=== PATIENT | female | born 1955 | race Hispanic/Latino ===

== ENCOUNTER 2020-06-01 08:38 | Day surgery (SDC) | payer SELFPAY ==
[2020-06-01 08:35] LABS: Absolute Lymphocytes (CBC) 2.1 K/uL (0.7-4.9); Basophils % 0.6 % (0-1.3); Hematocrit 42.6 % (36.0-45.0); Lymphocytes % 35.7 % (15.3-44.8); RBC Red Blood Cell Count 4.81 M/uL (3.86-4.86)
[2020-06-01 08:49] LABS: Urine Appearance CLEAR; Urine Bilirubin NEGATIVE (NEG); Urine Blood TRACE (NEG); Urine Color YELLOW; Urine Glucose NEGATIVE (NEG); Urine Protein NEGATIVE (NEG); Urine Specific Gravity 1.025 (1.005-1.030); Urine Urobilinogen 0.2 mg/dL (0.2-1.0); Urine pH 5.5 (5.0-7.0)
[2020-06-01 08:50] LABS: Urine Microscopic Reflex ORDER UMIC
[2020-06-01] MEDS ORDERED: FENTANYL CITR 100 MCG/2 ML ONE (08:57)
[2020-06-01] MEDS ORDERED: dexAMETHasone 10 MG/ML VIAL ONE (08:57)
[2020-06-01] MEDS ORDERED: LIDOCAINE 2% MPF 5 ML VIAL ONE (08:57)
[2020-06-01] MEDS ORDERED: propofoL 200 MG/20 ML VIAL IV ONE (08:57)
[2020-06-01] MEDS ORDERED: MIDAZOLAM HCL 2 MG/2 ML INJ ONE (08:57)
[2020-06-01] MEDS ORDERED: KETOROLAC 30 MG/ML INJ ONE (08:58)
[2020-06-01] MEDS ORDERED: ONDANSETRON 4 MG/2 ML VIAL ONE (08:59)
[2020-06-01 09:00] LABS: Urine Bacteria 20-50 /HPF (<20); Urine Culture Reflex Order REFLEXED; Urine Mucus LIGHT /HPF (NONE SEEN); Urine RBC <5 /HPF (NONE SEEN)
[2020-06-01] MEDS ORDERED: CEFAZOLIN/SWI 1gm 1 GM/10 ML SYR ONE (09:03)
[2020-06-01] MEDS ORDERED: Ringers Lactate 1,000 ML IV ONE (09:03)
[2020-06-01] MEDS ORDERED: ROCURONIUM 50 MG/5 ML VIAL IV ONE (09:26)
--- NOTE | 2020-06-01 09:28 | RAD REPORT ---
EXAM DESCRIPTION: John Guillory (2 Views)06/01/2020 8:05 am CLINICAL HISTORY: Lymphoma. Preop for shoulder surgery COMPARISON: None FINDINGS: The lungs appear clear of acute infiltrate. The heart is normal size IMPRESSION: No acute abnormalities displayed
[2020-06-01] MEDS ORDERED: Mastisol Adhesive Liq ONE (10:20)
[2020-06-01] MEDS ORDERED: GLYCOPYRROLATE 0.2 MG/ML SYR ONE (10:31)
[2020-06-01] MEDS ORDERED: NEOSTIGMINE 1 MG/ML -5 ML ONE (10:31)
[2020-06-01] MEDS ORDERED: BUPIVACA 0.5%/EPI 0.0005%/PF 30 ML VIAL ONE (10:41)
[2020-06-01] MEDS: HYDROMORPHONE HCL 1 MG/ML INJ ONE ×4 (11:09→11:24)
[2020-06-01] MEDS ORDERED: SUCCINYLCHOLINE 20 MG/ML (10 ML) IV ONE (11:10)
[2020-06-01] MEDS: MEPERIDINE HCL 25 MG/ML SYR ONE ×2 (11:32→11:37)
[2020-06-01] MEDS ORDERED: MEPERIDINE HCL 25 MG/ML SYR ONE (11:53)
[2020-06-01 13:38] VITALS: O2SAT 95
[2020-06-01 13:41] VITALS: BP 126/61
[2020-06-01 13:43] VITALS: TEMP 97
--- NOTE | 2020-06-01 19:52 | OP ---
Surgeon: Bernardo Galindo MD Tool Programmer: Alex. Preoperative Diagnosis: Lipoma of the right back. Postoperative Diagnosis: Lipoma of the right back. Procedure Performed: Excision of lipoma, 590 g. Anesthesia: General. Description Of Procedure: After satisfactory induction of general anesthesia, the patient was placed prone on the operating table. The back was prepped with DuraPrep, dry sterile drapes placed in usua l manner. A vertical ellipse of approximately 20 cm was outlined. Skin incised and then flaps eleva diana. Dissection proceeded down . A lipoma was attached to skin and retracted cephalad and removed. Electrocautery was used for hemostasis. Wound was closed with 3-0 Vicryl sutures __ deep space after a 10 HUSSAIN drain was placed, sewn in place with 2-0 silk, and skin was closed with 3 -0 PDS running locking. Dressings consisted of tincture of benzoin, Steri-Strips, 4 x 4s and tape. The patient tolerated the procedure well. Estimated Blood Loss: 100 cc. SALAZAR/VARGAS Voice ID: [id number] Report ID: [id number]
--- NOTE | 2020-06-02 07:34 | EKG ---
Test Date: 2020-06-01 Test Time: 08:14:04 Timber Hewer: KATERIN MEASUREMENT RESULTS: Intervals: Rate: 61 HI: 158 QRSD: 78 QT: 432 QTc: 434 [place]: P: 32 HI: 158 QRS: 41 T: 16 INTERPRETIVE STATEMENTS: Normal sinus rhythm Low voltage QRS Borderline ECG No previous ECG available for comparison Electronically Signed On 06-02-20 07:32:38 CDT by John Garza
== END 2020-06-01 12:55 | disposition home or self-care (01) ==
LOC: DS 08:38
PROVIDERS: ATTEND Specialist
PROC: 0JB70ZZ Excision of Back Subcutaneous Tissue and Fascia, Open Approach (ICD-10-PCS; principal; 2020-06-01 09:00)
DX: D17.1 Benign lipomatous neoplasm of skin and subcutaneous tissue of trunk (principal); Z01.810 Encounter for preprocedural cardiovascular examination; Z20.828 Contact with and (suspected) exposure to other viral communicable diseases; Z01.812 Encounter for preprocedural laboratory examination; Z01.818 Encounter for other preprocedural examination
CPT/HCPCS: 36415; 71046; 81003; 81015; 85025; 87086; 87088; 88304; 88305; 93005; J0330; J0690; J1100; J1170; J2175; J2250; J2405; J2704; J2710; J3010; J7120; U0002